=== PATIENT | female | born 1985 | race Two or more races ===

== ENCOUNTER 2020-03-31 21:33 | Emergency (ER) | payer SELFPAY ==
[~2020-03-31] VITALS: Ht 154.9 cm; Wt 63.0 kg
--- NOTE | 2020-03-31 21:58 | Emergency Room Report ---
History of Present Illness General Chief Complaint: Flu Like Symptoms Source: Patient Present Illness HPI Is a 34-year-old female with no past medical history. She is 7 months . She presents with chief complaint of runny nose and congestion. She also has decreased taste and lack of smell. She tested positive for Covid in December. She had tested again in January was negative. Her symptom has been resolved since then. She also has a cat and has allergic reaction to it. She says she has runny nose and itchy eyes. Just slight though. There is also a new cat this been with her for the last 6 months. 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 2020 COVID-19 Screening: Positive COVID-19 COVID-19 Testing Source: unknown Patient History Past Medical History: see triage record, old chart reviewed Past Surgical History: none Pertinent Family History: none Social History: Denies: smoking Last Menstrual Period: Dec 2019 Now: Yes - 7 months : 4 Para: 3 Immunizations: other Reviewed Nursing Documentation: PMH: Agreed; PSxH: Agreed Nursing Documentation-PMH Past Medical History: No History, Except For Review of Systems Eye: Denies: eye pain, blurred vision ENT: Denies: ear pain, nose congestion, throat swelling Respiratory: Denies: cough, shortness of breath Cardiovascular: Denies: chest pain, palpitations Gastrointestinal: Denies: abdominal pain, diarrhea, nausea, vomiting Musculoskeletal: Denies: back pain, joint pain Skin: Denies: rash Neurological: Denies: headache, numbness Endocrine: Denies: increased thirst, increased urine Hematologic/Lymphatic: Denies: easy bruising All Other Systems: negative except mentioned in HPI Physical Exam Vital Signs Date Time Temp Pulse Resp B/P (MAP) Pulse Ox O2 Delivery O2 Flow Rate FiO2 03/31/20 21:46 97.0 83 18 107/59 (75) 99 Room Air vitals normal Sp02 EP Interpretation: reviewed, normal General Appearance: well appearing, no apparent distress, alert Head: normocephalic, atraumatic Eyes: bilateral eye PERRL, bilateral eye EOMI ENT: hearing grossly normal, normal pharynx Neck: full range of motion, supple, no meningismus Respiratory: chest non-tender, lungs clear, normal breath sounds Cardiovascular #1: regular rate, rhythm, no murmur Gastrointestinal: normal bowel sounds, non tender, no mass, no organomegaly, no bruit, non-distended, other - Gravid Musculoskeletal: back normal, normal range of motion, gait/station normal Psychiatric: mood/affect normal Medical Decision Making Diagnostic Impression: Primary Impression: Allergic rhinitis due to animal (cat) (dog) hair and dander Additional Impressions: Post-acute COVID-19 syndrome UTI (urinary tract infection) Qualified Codes: N30.00 - Acute cystitis without hematuria ER Course Patient presents with a combination of allergic rhinitis to cat and also sequelae of Covid infection. She still has lack of smell and taste. Explained to the patient that we do not have exact timeframe when this will get better. The good news for her however she has no respite distress and her oxygenation is 100% on room air. I see no evidence of any pneumonia. She still has good movement. Will discharge home with reassurance. Last Vital Signs Date Time Temp Pulse Resp B/P (MAP) Pulse Ox O2 Delivery O2 Flow Rate FiO2 03/31/20 21:46 97.0 83 18 107/59 (75) 99 Room Air Status: unchanged Disposition: HOME, SELF-CARE Condition: Stable Scripts Loratadine (Claritin*) 10 Mg Tablet 10 MG PO DAILY for Allergies, #30 TAB Prov: Kole Snider MD 03/31/20 Nitrofurantoin Monohyd/M-Cryst (Nitrofurantoin [place]-Mcr 100 mg) 100 Mg Capsule 100 MG ORAL Q12H, #14 CAP Prov: Kole Snider MD 03/31/20 Additional Instructions: Follow-up with your doctor in 7 days. Return of your sense of smell and taste is unknown. Return if symptoms worsen. Kole Snider MD Mar 31, 2020 21:57
--- NOTE | 2020-03-31 22:00 | NUR ---
ED Nurse Note: PATIENT CAME IN WITH COMPLAINTS OF FLU LIKE SYMPTOMS, PATIENT IS , RECENT COVID (-) TEST
--- NOTE | 2020-03-31 22:05 | NUR ---
ED Nurse Note: urine specimen sent to lab
[2020-03-31 22:09] VITALS: BP 107/59
[2020-03-31 22:24] LABS: APPEARANCE,URINE SLIGHTLY CLOUDY; BILIRUBIN, URINE NEGATIVE (NEGATIVE); COLOR,URINE PALE YELLOW; GLUCOSE, URINE (UA) NEGATIVE (NEGATIVE); KETONES,URINE NEGATIVE (NEGATIVE); LEUKOCYTE ESTERASE ,URINE 1+ (NEGATIVE); NITRITE,URINE NEGATIVE (NEGATIVE); PH,URINE 7 (4.5-8.0); PROTEIN,URINE NEGATIVE (NEGATIVE); UROBILINOGEN,URINE NORMAL MG/DL (0.0-1.0)
[2020-03-31] MEDS ORDERED: LORATADINE10 M2 PO (22:45)
[2020-03-31] MEDS ORDERED: MACROBID100 MG ORAL (22:45)
[2020-03-31 22:47] VITALS: BP 102/60
--- NOTE | 2020-03-31 22:48 | NUR ---
ER DISCHARGE NOTE: Patient is cleared to be discharged per ERMD, pt is aox4, on room air, with stable vital signs. pt was given dc and prescription instructions, pt was able to verbalize understanding, pt id band removed without complications. pt is able to ambulate with steady gait. pt took all belongings.
== END 2020-03-31 22:47 | disposition home or self-care (01) ==
LOC: EMR 22:08
DX: O26.893 Other specified pregnancy related conditions, third trimester (principal); J30.81 Allergic rhinitis due to animal (cat) (dog) hair and dander; N30.00 Acute cystitis without hematuria; Z3A.00 Weeks of gestation of pregnancy not specified; R43.8 Other disturbances of smell and taste
CPT/HCPCS: 81003; 87086; 99283

== ENCOUNTER 2020-05-01 21:37 | Emergency (ER) | payer MEDICAID ==
[~2020-05-01] VITALS: Ht 154.9 cm; Wt 63.5 kg
[~2020-05-01 21:37] MED LIST: LORATADINE10 M2 PO; MACROBID100 MG ORAL
[2020-05-01] MEDS ORDERED: Acetaminophen 500mg (ES) tab ORAL ONE ×2 (22:00→22:23)
--- NOTE | 2020-05-01 22:00 | NUR ---
Patient arrived to ER via ambulatory c/o dizziness for 2 days . New orders received from EDP and carried out. All procedures were explain to the patient . Patient verbalized understanding. Safety and comfort measures taken: bed set in low position, frequent rounds, call light within reach. Will continue monitoring the patient during the sift
[2020-05-01 22:17] VITALS: BP 110/73
--- NOTE | 2020-05-01 22:30 | NUR ---
Pte refers she is with 32 weeks . EDp did US and heart rate was 142. Will continue to monitor.
[2020-05-01 22:33] LABS: BASOPHILS % (AUTO) 0.9 % (0.0-2.0); HEMATOCRIT 35.6 % (37.0-47.0); HEMOGLOBIN 12.1 G/DL (12.0-16.0); LYMPHOCYTES % (AUTO) 26.2 % (20.0-45.0); MEAN CORPUSCULAR VOLUME 93 FL (80-99); MONOCYTES % (AUTO) 8.9 % (1.0-10.0); PLATELET COUNT 163 K/UL (150-450); RED BLOOD COUNT 3.84 M/UL (4.20-5.40); RED CELL DISTRIBUTION WIDTH 13.4 % (11.6-14.8); WHITE BLOOD COUNT 5.9 K/UL (4.8-10.8)
[2020-05-01 22:45] LABS: ANION GAP 10 mmol/L (5-15); BLOOD UREA NITROGEN 10 mg/dL (7-18); CALCIUM 8.9 MG/DL (8.5-10.1); CARBON DIOXIDE 25 MMOL/L (21-32); CHLORIDE 106 MMOL/L (98-107); CREATININE 0.6 MG/DL (0.55-1.30); POTASSIUM 3.3 MMOL/L (3.5-5.1); SODIUM 141 MMOL/L (136-145)
[2020-05-01 22:50] LABS: ALANINE AMINOTRANSFERASE 18 U/L (12-78); ALBUMIN 2.4 G/DL (3.4-5.0); ALBUMIN/GLOBULIN RATIO 0.6 (1.0-2.7); ALKALINE PHOSPHATASE 154 U/L (46-116); ASPARTATE AMINO TRANSFERASE 11 U/L (15-37); BILIRUBIN,TOTAL 0.3 MG/DL (0.2-1.0)
[2020-05-01 23:03] LABS: INR 0.9 (0.9-1.1)
[2020-05-01 23:07] LABS: APPEARANCE,URINE CLEAR; BILIRUBIN, URINE NEGATIVE (NEGATIVE); COLOR,URINE PALE YELLOW; GLUCOSE, URINE (UA) 2+ (NEGATIVE); KETONES,URINE NEGATIVE (NEGATIVE); LEUKOCYTE ESTERASE ,URINE NEGATIVE (NEGATIVE); NITRITE,URINE NEGATIVE (NEGATIVE); PH,URINE 6.5 (4.5-8.0); PROTEIN,URINE NEGATIVE (NEGATIVE); UROBILINOGEN,URINE NORMAL MG/DL (0.0-1.0)
[2020-05-02 00:17] VITALS: BP 102/56
--- NOTE | 2020-05-02 00:29 | Emergency Room Report ---
History of Present Illness General Chief Complaint: Dizziness Source: Patient Present Illness HPI Patient is 7/2 months . For a month she has been having low back pain. Is intermittent. It does not feel like cramps to her. Mainly when she is standing and washing dishes. Sometimes she feels dizzy when the pain occurs. Is been no bleeding or bloody show or clear discharge. She denies any dysuria but 2 weeks ago was started on antibiotics for a urinary tract infection. She denies fevers or chills. She has a 9-year-old at home. She has been taking Tylenol has helped a little bit. The last time she took Tylenol was 9 AM. She denies nausea, vomiting or diarrhea. She is also taking her bites at this time. She denies headache or swelling in her ankles. She has had no problems with diabetes or blood pressure. She is also feeling some dizziness when she stands. She has been able to eat w ithout any trouble. She is moving her bowels without difficulty. She is complaining about some muscle cramping in her legs. Patient had Covid in December. No sore throat, chest pain, palpitations, abdominal pain, shortness of breath, rashes, depression, anxiety. 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 Patient History Past Medical History: see triage record Social History: Denies: smoking, alcohol use, drug use Social History Narrative youngest is 9 Now: Yes - 7 1/2 month : 4 Para: 3 Reviewed Nursing Documentation: PMH: Agreed; PSxH: Agreed Nursing Documentation-PMH Past Medical History: No Stated History Review of Systems All Other Systems: negative except mentioned in HPI Physical Exam Vital Signs Date Time Temp Pulse Resp B/P (MAP) Pulse Ox O2 Delivery O2 Flow Rate FiO2 05/01/20 21:45 97.0 89 19 101/66 (78) 98 Room Air Sp02 EP Interpretation: reviewed, normal General Appearance: well appearing, no apparent distress, GCS 15 Head: normocephalic Eyes: bilateral eye normal inspection, bilateral eye PERRL, bilateral eye EOMI ENT: moist mucus membranes Neck: supple Respiratory: lungs clear, normal breath sounds Cardiovascular #1: regular rate, rhythm, no edema Cardiovascular #2: 2+ radial (R) Gastrointestinal: normal inspection, normal bowel sounds, non tender, other - Gravid abdomen Genitourinary: deferred - For ultrasound Musculoskeletal: normal range of motion, no calf tenderness, gait/station normal, tender - Lumbar area able to sit and stand without difficulty Neurologic: alert, oriented x3, grossly normal, other - No hyperreflexia Psychiatric: mood/affect normal Skin: no rash, warm/dry Medical Decision Making Diagnostic Impression: Primary Impression: 35 weeks gestation of Additional Impressions: Low back pain Qualified Codes: M54.5 - Low back pain Dizziness Hypokalemia ER Course Patient 7/2 months with low back pain. Differential includes early labor, [place] contractions, musculoskeletal pain, pyelonephritis, UTI amongst others. Patient evaluated with labs and ultrasound. Patient treated with IV hydration and Tylenol. Labs with normal white count. Urinalysis clear. Potassium slightly low. Ultrasound with 34 wk 6 d, SYED reported 5. FHT = 150. Cervix closed. Patient slightly improved with IV hydration. Potassium given for muscle cramps and low potassium. Due to the ultrasound and the fact that we need to exclude premature labor the patient would benefit from observation in the labor and delivery unit. Accepted by Dr. Navarro at [facility]. Discussed findings with patient and her . She states the dizziness is somewhat improved after IV hydration. Laboratory Tests Test 05/01/20 22:25 White Blood Count 5.9 K/UL (4.8-10.8) Red Blood Count 3.84 M/UL (4.20-5.40) L Hemoglobin 12.1 G/DL (12.0-16.0) Hematocrit 35.6 % (37.0-47.0) L Mean Corpuscular Volume 93 FL (80-99) Mean Corpuscular Hemoglobin 31.5 PG (27.0-31.0) H Mean Corpuscular Hemoglobin Concent 34.0 G/DL (32.0-36.0) Red Cell Distribution Width 13.4 % (11.6-14.8) Platelet Count 163 K/UL (150-450) Mean Platelet Volume 9.1 FL (6.5-10.1) Neutrophils (%) (Auto) 62.0 % (45.0-75.0) Lymphocytes (%) (Auto) 26.2 % (20.0-45.0) Monocytes (%) (Auto) 8.9 % (1.0-10.0) Eosinophils (%) (Auto) 2.0 % (0.0-3.0) Basophils (%) (Auto) 0.9 % (0.0-2.0) Prothrombin Time 10.3 SEC (9.30-11.50) Prothrombin Time INR 0.9 (0.9-1.1) Activated Partial Thromboplast Time 24 SEC (23-33) Urine Color Pale yellow Urine Appearance Clear Urine pH 6.5 (4.5-8.0) Urine Specific [place] 1.015 (1.005-1.035) Urine Protein Negative (NEGATIVE) Urine Glucose (UA) 2+ (NEGATIVE) H Urine Ketones Negative (NEGATIVE) Urine Blood Negative (NEGATIVE) Urine Nitrite Negative (NEGATIVE) Urine Bilirubin Negative (NEGATIVE) Urine Urobilinogen Normal MG/DL (0.0-1.0) Urine Leukocyte Esterase Negative (NEGATIVE) Sodium Level 141 MMOL/L (136-145) Potassium Level 3.3 MMOL/L (3.5-5.1) L Chloride Level 106 MMOL/L (98-107) Carbon Dioxide Level 25 MMOL/L (21-32) Anion Gap 10 mmol/L (5-15) Blood Urea Nitrogen 10 mg/dL (7-18) Creatinine 0.6 MG/DL (0.55-1.30) Estimated Glomerular Filtration Rate > 60 mL/min (>60) Glucose Level 110 MG/DL (74-106) H Calcium Level 8.9 MG/DL (8.5-10.1) Total Bilirubin 0.3 MG/DL (0.2-1.0) Aspartate Amino Transferase (AST) 11 U/L (15-37) L Alanine Aminotransferase (ALT) 18 U/L (12-78) Alkaline Phosphatase 154 U/L (46-116) H Total Protein 6.3 G/DL (6.4-8.2) L Albumin 2.4 G/DL (3.4-5.0) L Globulin 3.9 g/dL Albumin/Globulin Ratio 0.6 (1.0-2.7) L Lipase 131 U/L (73-393) CT/MRI/US Diagnostic Results CT/MRI/US Diagnostic Results : Imaging Test Ordered: Pelvic ultrasound Impression heart rate 150. 34 weeks 6-day IUP. SYED is 5 (this should be 10). Last Vital Signs Date Time Temp Pulse Resp B/P (MAP) Pulse Ox O2 Delivery O2 Flow Rate FiO2 05/02/20 02:53 98.3 78 17 103/59 98 Room Air Status: improved Disposition: SHORT-TERM HOSP Condition: Stable Referrals: NON PHYSICIAN (PCP) Sam Rivera MD May 02, 2020 00:29
--- NOTE | 2020-05-02 01:18 | NUR ---
Patient continues in bed stable, no changes from previous assessment, Vital signs within normal range, no change in patient status, IV line patent, no signs of pain or distress at this time, all safety and comfort measures maintained, will continue monitoring the patient.
--- NOTE | 2020-05-02 01:28 | Diagnostic Imaging Report ---
EXAM: US Second or Third Trimester , Transabdominal CLINICAL HISTORY: PAIN TECHNIQUE: Real-time transabdominal obstetrical ultrasound of the maternal pelvis and a second or third trimester with image documentation. COMPARISON: No relevant prior studies available. FINDINGS: Fetus: Single intrauterine fetus. Heart rate: 150 BPM Presentation: Breech Placenta: Anterior. No abruption. Amniotic fluid: Within normal limits with deepest vertical pocket measuring 3.1 cm Anatomy: Intracranial/face anatomy not seen. Spinal anatomy not seen. Abdominal anatomy not seen. Extremities not seen. Four-chamber heart not seen. Umbilical cord not seen. BIOMETRICS Gestational age: JAS: 07/15/2020 EFW: 2335g BPD: 9.2 cm 37 weeks and 2 days HC: 31.60 cm 35 weeks and 3 days AC: 31.43 cm 35 weeks and 3 days FL: 5.66 cm 29 weeks and 5 days MATERNAL: Uterus: Unremarkable. No myometrial mass. Cervix: Unremarkable as visualized. Closed. Measures 3.3 cm in length. Free fluid: No free fluid. IMPRESSION: 1. A single intrauterine gestation is identified with composite sonographic gestational age of 34 weeks and 3 days. 2. Cervix is closed measuring 3.2 cm in length. 3. Adequate amniotic fluid. 4. Placenta is anterior with no evidence of previa.
--- NOTE | 2020-05-02 02:47 | NUR ---
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 vitals were taken and within normal range. Report was given to Ariana REILLY. safety and comfort measures take . Ptally left the ER in stable condition. Will continue to monitor.
[2020-05-02 02:53] VITALS: BP 103/59
== END 2020-05-02 02:57 | disposition short-term general hospital (02) ==
LOC: EMR 22:20
DX: O26.893 Other specified pregnancy related conditions, third trimester (principal); M54.5 Low back pain; E87.6 Hypokalemia; Z3A.35 35 weeks gestation of pregnancy; Z86.16 Personal history of COVID-19
CPT/HCPCS: 36415; 76805; 76817; 80053; 81003; 83690; 85025; 85610; 85730; 96360; J7030; Z7502; 99285; J8499